=== PATIENT | male | born 1935 | race Caucasian/White ===

== ENCOUNTER 2023-06-07 10:13 | Outpatient (CLI) | payer MEDICARE | END 2023-06-07 10:14 | disposition home or self-care (01) | LOC: SCSRAD 10:13 | PROVIDERS: ATTEND Nurse Practitioner Family | DX: S89.92XA Unspecified injury of left lower leg, initial encounter (principal); M17.12 Unilateral primary osteoarthritis, left knee ==

== ENCOUNTER 2023-06-29 11:51 | Outpatient (CLI) | payer MEDICARE | END 2023-06-29 11:52 | disposition home or self-care (01) | LOC: ULT 11:51 | PROVIDERS: ATTEND Internal Medicine | DX: M79.89 Other specified soft tissue disorders (principal); M79.605 Pain in left leg ==